=== PATIENT | male | born 1975 | race Caucasian/White ===

== ENCOUNTER 2018-09-26 11:22 | Emergency (ER) | payer OTHER ==
[~2018-09-26] VITALS: Ht 172.7 cm; Wt 94.5 kg
[2018-09-26 12:03] LABS: BASO % 0.4 % (0.0-1.0); EOS # 0.1 10^3/uL (0.0-0.50); EOS % 1.1 % (0.0-3.0); HEMATOCRIT 42.5 % (42.0-52.0); HEMOGLOBIN 14.4 g/dl (13.5-17.5); LYMPH # 1.7 10^3/uL (1.5-4.5); LYMPH % 19.6 % (24.0-44.0); MEAN CORPUSCULAR HEMOGLOBIN 31.7 pg (27.0-33.0); MEAN CORPUSCULAR HGB CONC 33.9 g/dl (32.0-36.5); MEAN CORPUSCULAR VOLUME 93.6 fl (80.0-96.0); MONO # 0.8 10^3/uL (0.0-0.8); NEUTROPHILS # 5.9 10^3/uL (1.8-7.7); NEUTROPHILS % 69.7 % (36.0-66.0); PLATELET COUNT, AUTOMATED 256 10^3/uL (150-450); RED BLOOD COUNT 4.54 10^6/uL (4.30-6.10); WHITE BLOOD COUNT 8.5 10^3/uL (4.0-10.0)
[2018-09-26 12:29] LABS: ALBUMIN 3.8 GM/DL (3.2-5.2); ALT/SGPT 108 U/L (12-78); BILIRUBIN,DIRECT 0.2 MG/DL (0.0-0.2); BILIRUBIN,TOTAL 0.6 MG/DL (0.2-1.0); BLOOD UREA NITROGEN 16 MG/DL (7-18); CALCIUM LEVEL 9.2 MG/DL (8.5-10.1); CARBON DIOXIDE LEVEL 30 MEQ/L (21-32); CHLORIDE LEVEL 103 MEQ/L (98-107); CREATININE FOR GFR 0.93 MG/DL (0.70-1.30); GLOMERULAR FILTRATION RATE > 60.0 (>60); GLUCOSE, FASTING 106 MG/DL (70-100); LIPASE 64 U/L (73-393); SODIUM LEVEL 138 MEQ/L (136-145); TOTAL PROTEIN 7.3 GM/DL (6.4-8.2)
[2018-09-26] MEDS ORDERED: NS 500 ML IV ONE (13:30)
[2018-09-26] MEDS ORDERED: ISOVUE-370 76% 100ML VIAL (Q9967) As Ordered ONE (13:40)
--- NOTE | 2018-09-26 14:05 | REP ---
Clinical: Acute abdominal pain with diarrhea. Technique: Axial contrast enhanced images from the lung bases to the pubic symphysis using 100 ml Isovue 370 intravenous contrast material with coronal and sagittal re-formations. Findings: Mucosal thickening involving the mid/distal sigmoid colon with pericolonic inflammatory stranding surrounding multiple diverticula most compatible with acute diverticulitis. No bowel obstruction or free air to suggest perforation. No drainable collection/abscess. Remainder of the small and large bowel is grossly unremarkable. Normal terminal ileum and appendix identified in the right lower quadrant. Liver, spleen, pancreas, gallbladder, bilateral adrenal glands and kidneys are normal. Further evaluation of the pelvis demonstrates normal bladder and age appropriate prostate/seminal vesicles. No ascites. No free air. No adenopathy. Abdominal aorta without aneurysm or dissection. Surrounding musculoskeletal structures are intact. Lung bases are clear. Impression: Acute sigmoid diverticulitis. Electronically Signed by Fernie Coe MD 09/26/2018 01:57 P
[2018-09-26] MEDS ORDERED: KETOROLAC 30 MG/ML VIAL (J1885) IV ONE (14:15)
[2018-09-26] MEDS ORDERED: FLAG500T PO (15:03)
[2018-09-26] MEDS ORDERED: CIPR-249 PO (15:03)
[2018-09-26 15:48] VITALS: BP 118/69
== END 2018-09-26 16:10 | disposition home or self-care (01) ==
LOC: M ED 11:22
DX: K57.32 Diverticulitis of large intestine without perforation or abscess without bleeding (principal); R79.89 Other specified abnormal findings of blood chemistry
CPT/HCPCS: 74177; 80048; 80076; 81001; 83690; 85025; 87507; 96361; 96374; 99284; J1885; Q9967

== ENCOUNTER → 2019-04-13 | Outpatient (REF) | payer OTHER ==
[~2019-04-13] MED LIST: CIPR-249 PO; FLAG500T PO
[2019-04-13 17:20] LABS: HEMATOCRIT 44.8 % (42.0-52.0); HEMOGLOBIN 14.6 g/dl (13.5-17.5); MEAN CORPUSCULAR HEMOGLOBIN 30.5 pg (27.0-33.0); MEAN CORPUSCULAR HGB CONC 32.6 g/dl (32.0-36.5); MEAN CORPUSCULAR VOLUME 93.5 fl (80.0-96.0); PLATELET COUNT, AUTOMATED 264 10^3/uL (150-450); RED BLOOD COUNT 4.79 10^6/uL (4.30-6.10); WHITE BLOOD COUNT 4.3 10^3/uL (4.0-10.0)
[2019-04-13 17:28] LABS: ALBUMIN 4.2 GM/DL (3.2-5.2); ALT/SGPT 65 U/L (12-78); BILIRUBIN,TOTAL 0.4 MG/DL (0.2-1.0); BLOOD UREA NITROGEN 20 MG/DL (7-18); CALCIUM LEVEL 9.1 MG/DL (8.5-10.1); CARBON DIOXIDE LEVEL 30 MEQ/L (21-32); CHLORIDE LEVEL 103 MEQ/L (98-107); CREATININE FOR GFR 0.98 MG/DL (0.70-1.30); GLOMERULAR FILTRATION RATE > 60.0 (>60); GLUCOSE, FASTING 84 MG/DL (70-100); POTASSIUM SERUM 4.6 MEQ/L (3.5-5.1); SODIUM LEVEL 140 MEQ/L (136-145); TOTAL PROTEIN 7.2 GM/DL (6.4-8.2)
== END ==
LOC: M LABDRWAD 16:15
PROVIDERS: ATTEND Urology
DX: N32.0 Bladder-neck obstruction (principal)
CPT/HCPCS: 36415; 80053; 85027; G0103

== ENCOUNTER 2020-01-02 23:02 | Emergency (ER) | payer OTHER ==
[~2020-01-02] VITALS: Ht 172.7 cm; Wt 95.9 kg
[2020-01-02] MEDS ORDERED: ESOM20CA25 PO (23:13)
--- NOTE | 2020-01-02 23:50 | REPVR ---
PROCEDURE INFORMATION: Exam: XR Left Hand Exam date and time: 01/02/2020 11:30 PM Age: 44 years old Clinical indication: Injury or trauma; Piece of hammer; Laceration; Hand; Left TECHNIQUE: Imaging protocol: XR Left hand. Views: 3 or more views. COMPARISON: No relevant prior studies available. FINDINGS: Bones/joints: There is no fracture or dislocation of the left hand. The joint spaces are preserved. No arthropathy is noted. Soft tissues: There is a 3 mm metallic foreign body in the soft tissues radial to the left 2nd metacarpophalangeal joint. There is a 6 mm metallic foreign body in the soft tissues dorsal to the mid diaphysis of the left 2nd metacarpal. IMPRESSION: 1. No fracture or dislocation of the left hand. 2. 3 mm metallic foreign body in the soft tissues radial to the left 2nd metacarpophalangeal joint. 3. 6 mm metallic foreign body in the soft tissues dorsal to the mid diaphysis of the left 2nd metacarpal. Electronically signed by: Venancio Rodriguez On 01/02/2020 23:49:37 PM
[2020-01-03] MEDS ORDERED: LIDOCAINE W/EPINEPHRINE 1% 20ML VIAL SC ONE (01:00)
[2020-01-03] MEDS ORDERED: BOOSTRIX/ADACEL VACCINE (DIPHTH/PERTUSS/ACELL/TETANUS) 0.5ML SYR IM ONE (01:30)
[2020-01-03 01:48] VITALS: BP 152/95
--- NOTE | 2020-01-03 14:18 | ED PDOC ---
Post-Departure Follow-Up certified letter sent to pt. confirmed w Isabell Mcmahon she only removed one forign b radha-. Pt needs to be seen by ortho for fu. She verbally told him to do so. Ensure he has. If not refer to ortho and fax report. Antonino Buckley MD Jan 03, 2020 14:18
== END 2020-01-03 01:50 | disposition home or self-care (01) ==
LOC: M ED 23:02
DX: S60.552A Superficial foreign body of left hand, initial encounter (principal); X58.XXXA Exposure to other specified factors, initial encounter; Y92.099 Unspecified place in other non-institutional residence as the place of occurrence of the external cause; Y93.9 Activity, unspecified; Y99.9 Unspecified external cause status

== ENCOUNTER → 2020-03-14 | Outpatient (REF) | payer OTHER ==
[~2020-03-14] MED LIST changes: +ESOM20CA25 PO
[2020-03-14 13:18] LABS: APPEARANCE, URINE CLEAR (CLEAR); BACTERIA, URINE AUTO NEGATIVE (NEGATIVE); BILIRUBIN, URINE AUTO NEGATIVE (NEGATIVE); BLOOD, URINE BLOOD NEGATIVE (NEGATIVE); COLOR, URINE YELLOW (YELLOW); GLUCOSE, URINE (UA) AUTO NEGATIVE (NEGATIVE); KETONE, URINE AUTO NEGATIVE (NEGATIVE); LEUKOCYTE ESTERASE, URINE AUTO NEGATIVE (NEGATIVE); MUCUS, URINE SMALL (NEGATIVE); NITRITE, URINE AUTO NEGATIVE (NEGATIVE); PROTEIN, URINE AUTO NEGATIVE (NEGATIVE); RBC, URINE AUTO 0 /HPF (0-3); SPECIFIC GRAVITY URINE AUTO 1.009 (1.002-1.035); SQUAMOUS EPITHELIAL CELL UR AU 0 /HPF (0-6); UROBILINOGEN, URINE AUTO 0.2 mg/dL (0.0-2.0); WBC, URINE AUTO 0 /HPF (0-3)
== END ==
LOC: M LABDRWAD 12:42
PROVIDERS: ATTEND Surgery
DX: R39.9 Unspecified symptoms and signs involving the genitourinary system (principal); R39.12 Poor urinary stream

== ENCOUNTER 2020-11-11 18:31 | Emergency (ER) | payer OTHER ==
[2020-11-11] MEDS ORDERED: FAMOTIDINE INJ 20MG/2ML VIAL (S0028 PER 1) IVP ONE (19:20)
[2020-11-11] MEDS ORDERED: methylPREDNISolone 125MG 2ML VIAL IV ONE (19:20)
[2020-11-11] MEDS ORDERED: ADVI200T17 PO (19:34)
[2020-11-11] MEDS ORDERED: PEPC1TAB5 PO (21:26)
[2020-11-11] MEDS ORDERED: PRED20TA PO (21:26)
[2020-11-11 21:31] VITALS: BP 127/83
== END 2020-11-11 21:42 | disposition home or self-care (01) ==
LOC: M ED 18:31
DX: T63.441A Toxic effect of venom of bees, accidental (unintentional), initial encounter (principal); L29.9 Pruritus, unspecified; K21.9 Gastro-esophageal reflux disease without esophagitis; Z91.030 Bee allergy status; Z79.899 Other long term (current) drug therapy
CPT/HCPCS: 93041; 94760; 96374; 96375; 99285; J2930

== ENCOUNTER 2021-01-25 11:55 | Emergency (ER) | payer OTHER ==
[~2021-01-25] VITALS: Ht 170.2 cm; Wt 91.8 kg
[~2021-01-25 11:55] MED LIST changes: +ADVI200T17 PO; +PEPC1TAB5 PO; +PRED20TA PO
[2021-01-25] MEDS ORDERED: AZIT-12 (12:04)
[2021-01-25] MEDS ORDERED: ALBU83IN (12:04)
[2021-01-25 13:26] LABS: HEMATOCRIT 40.4 % (42.0-52.0); HEMOGLOBIN 13.7 g/dl (13.5-17.5); LYMPH # 0.8 10^3/uL (1.5-5.0); LYMPH % 17.7 % (24.0-44.0); MEAN CORPUSCULAR HEMOGLOBIN 30.4 pg (27.0-33.0); MEAN CORPUSCULAR HGB CONC 33.9 g/dl (32.0-36.5); MEAN CORPUSCULAR VOLUME 89.8 fl (80.0-96.0); MONO # 0.3 10^3/uL (0.0-0.8); MONO % 6.6 % (2.0-8.0); NEUTROPHILS # 3.2 10^3/uL (1.5-8.5); NEUTROPHILS % 75.5 % (36.0-66.0); PLATELET COUNT, AUTOMATED 218 10^3/uL (150-450); WHITE BLOOD COUNT 4.2 10^3/uL (4.0-10.0)
[2021-01-25 13:36] LABS: INR 0.99; PROTHROMBIN TIME 13.5 SECONDS (12.7-14.5)
[2021-01-25 13:37] LABS: PARTIAL THROMBOPLASTIN TIME 33.2 SECONDS (25.9-37.0)
[2021-01-25 13:40] LABS: D-DIMER QUANT 341.17 ng/ml (<500)
[2021-01-25 13:48] LABS: CK-MB VALUE MASS 1.1 NG/ML (<3.6); MB/CK RELATIVE INDEX 0.36 (< OR =4)
[2021-01-25] MEDS ORDERED: ONDANSETRON 4MG/2ML VIAL IV ONE (14:00)
[2021-01-25 14:19] LABS: ALBUMIN 3.4 GM/DL (3.2-5.2); ALT/SGPT 77 U/L (12-78); BILIRUBIN,DIRECT < 0.1 MG/DL (0.0-0.2); BILIRUBIN,TOTAL 0.3 MG/DL (0.2-1.0); BLOOD UREA NITROGEN 16 MG/DL (7-18); C REACTIVE PROTEIN QUANTITATIV 2.04 MG/DL (0.00-0.30); CALCIUM LEVEL 8.4 MG/DL (8.5-10.1); CARBON DIOXIDE LEVEL 28 MEQ/L (21-32); CHLORIDE LEVEL 103 MEQ/L (98-107); CREATININE FOR GFR 0.89 MG/DL (0.70-1.30); FERRITIN 754 NG/ML (26-388); GLOMERULAR FILTRATION RATE > 60.0 (>60); GLUCOSE, FASTING 85 MG/DL (70-100); LDH LACTATE DEHYDROGENASE 250 U/L (87-241); NT-PRO BNP 118 PG/ML (<125); POTASSIUM SERUM 3.6 MEQ/L (3.5-5.1); SODIUM LEVEL 138 MEQ/L (136-145); THYROXINE (T4) 8.4 UG/DL (4.5-12.0)
[2021-01-25] MEDS ORDERED: ACETAMINOPHEN 325 MG TAB PO ONE (15:25)
[2021-01-25 16:00] VITALS: BP 96/55
== END 2021-01-25 17:11 | disposition home or self-care (01) ==
LOC: M ED 11:55
DX: U07.1 COVID-19 (principal); J12.9 Viral pneumonia, unspecified; G47.33 Obstructive sleep apnea (adult) (pediatric); R00.0 Tachycardia, unspecified; Z91.030 Bee allergy status; Z79.899 Other long term (current) drug therapy
CPT/HCPCS: 71045; 80048; 80076; 82550; 82553; 82728; 83605; 83615; 83735; 83880; 84145; 84436; 84443; 84484; 85025; 85379; 85384; 85610; 85730; 86140; 87040; 87798; 93005; 93041; 94760; 96374; 99285; J2405

== ENCOUNTER → 2021-02-05 | Outpatient (CLI) | payer OTHER ==
[~2021-02-05] MED LIST changes: +ALBU83IN; +AZIT-12; +ISOVUE-370 76% 100ML VIAL ONE
--- NOTE | 2021-02-05 09:42 | REP ---
INDICATION: PULMONARY EMBOLISM COMPARISON: None. TECHNIQUE: Axial contrast enhanced images from the thoracic inlet to the upper abdomen using pulmonary embolus technique with multiplanar re-formations. 75 ml Isovue 370 intravenous contrast material administered without complication. This CT examination was performed using the following dose reduction techniques: Automated exposure control, adjustment of mA and/or kv according to the patient's size, and use of iterative reconstruction technique. FINDINGS: Satisfactory enhancement of the pulmonary vasculature is achieved and no filling defects are identified to suggest pulmonary embolus. Further evaluation of the mediastinum demonstrates normal thoracic aorta, heart and pericardium. Lung bailey demonstrate patchy bilateral alveolar infiltrates suspicious for COVID-19 pulmonary disease and correlation is recommended. No discrete consolidation. No effusion. No pneumothorax. Tracheobronchial tree is patent. No significant adenopathy. IMPRESSION: No evidence for pulmonary embolus. Patchy bilateral alveolar opacities concerning for COVID-19 pulmonary disease.. <Electronically signed by Fernie Coe > 02/05/21 [id number]
== END ==
LOC: M PLAIMG 08:26
PROVIDERS: ATTEND Nurse Practitioner Family
DX: U07.1 COVID-19 (principal)
CPT/HCPCS: 71275; Q9967

== ENCOUNTER → 2024-01-10 | Outpatient (CLI) | payer OTHER ==
[~2024-01-10] MED LIST changes: +ALBU2.5V10; -ALBU83IN; -ISOVUE-370 76% 100ML VIAL ONE
== END ==
LOC: M RAD 08:49
PROVIDERS: ATTEND Nurse Practitioner Family
DX: R94.5 Abnormal results of liver function studies (principal)

== ENCOUNTER 2024-04-06 09:47 | Day surgery (SDC) | payer OTHER ==
[~2024-04-06] VITALS: Ht 172.7 cm; Wt 102.1 kg
[~2024-04-06 09:47] MED LIST changes: +ADVI200T PO; +LIDOCAINE 2% 100MG/5ML SDV (FOR ANES.) As Ordered ONE; +MELA10CA2 PO; +NEXI20CA PO; +propofoL 200 MG/20 ML VIAL As Ordered ONE
[2024-04-06 12:01] VITALS: TEMP 97
[2024-04-06 12:26] VITALS: BP 116/71; O2SAT 97
== END 2024-04-06 12:50 | disposition home or self-care (01) ==
LOC: M OPP 09:47
PROVIDERS: ATTEND Surgery
DX: Z12.11 Encounter for screening for malignant neoplasm of colon (principal); K21.9 Gastro-esophageal reflux disease without esophagitis; Z91.030 Bee allergy status; Z79.899 Other long term (current) drug therapy